=== PATIENT | male | born 1990 | race African-American/Black ===

== ENCOUNTER 2018-10-04 18:38 | Emergency (ER) | payer OTHER ==
[2018-10-04 18:44] VITALS: BP 119/77; PULSE 65; TEMP 97.6; BMI 29.2
--- NOTE | 2018-10-04 19:05 | PDOC ---
History of Present Illness - General Chief Complaint: Headache Stated Complaint: headache, and nausea Time Seen by Provider: 10/04/18 19:04 History Source: Patient Exam Limitations: No Limitations - History of Present Illness Initial Comments: 10/04/18 19:10 This is a 28-year-old male who comes in complaining of a headache. Patient has a history of migraines and said that this one was different in that he had had some visual disturbances prior to the onset of a migraine. Patient described it as a bright light and some waviness in his visual antonio patient said it was brief and then he had the headache and some associated nausea which he often does not get. Patient did not take anything for the symptoms and by came to the ED. By the time I evaluated him his symptoms had pretty much completely resolved to the point he did not want any further treatment or medications. Allergies: as per nursing notes Past Medical History: none Social history: Lives with family. No smoking. No alcohol. No illicit drugs. Surgical history: None General: No fevers or chills, no weakness, no weight loss HEENT: No change in vision. No sore throat,. No ear pain CardioVascular: no chest discomfort. No shortness of breath Respiratory:No cough, or wheezing. Gastrointestinal: + nausea, no vomiting, diarrhea or constipation, No rectal bleeding Genitourinary: No dysuria, hematuria, or frequency Musculoskeletal: No joint or muscle pain or swelling Neurologic: + migraine-type headache with some visual disturbances prior to onset of headache, vertigo, dizziness or loss of consciousness Psychiatric: nor depression Skin: No rashes or easy bruising Endocrine: no increased thirst or abnormal weight change Allergic: no skin or latex allergy All other systems reviewed and normal GENERAL: The patient is awake, alert, and fully oriented, in no acute distress. HEAD: Normal with no signs of trauma. EYES: Pupils equal, round and reactive to light, extraocular movements intact, sclera anicteric, conjunctiva clear. EXTREMITIES:atraumatic, Normal range of motion, no edema. NEUROLOGICAL: Normal speech, normal gait. PSYCH: Normal mood, normal affect. SKIN: Warm, Dry, normal turgor, no rashes or lesions noted. Assessment and plan: This is a 28-year-old male who comes in complaining of a atypical type migraine. Patient did not take anything for the symptoms and by came to the ED. By the time I evaluated him his symptoms had pretty much completely resolved to the point he did not want any further treatment or medications. Discussed with patient the etiology and treatment of migraines and referred him to follow-up with his primary care doctor if he had any further concerns Past History - Past Medical History Allergies/Adverse Reactions: Allergies Allergy/AdvReac Type Severity Reaction Status Date / Time No Known Allergies Allergy Verified 10/04/18 18:40 Home Medications: Ambulatory Orders Metoclopramide HCl [Reglan] 5 mg PO BID PRN #10 tablet 10/04/18 COPD: No Other medical history: pt denies - Suicide/Smoking/Psychosocial Hx Smoking History: Never smoked Hx Alcohol Use: No Drug/Substance Use Hx: No *Physical Exam - Vital Signs Last Vital Signs Temp Pulse Resp BP Pulse Ox 97.6 F 65 18 119/77 100 10/04/18 18:39 10/04/18 18:39 10/04/18 18:39 10/04/18 18:39 10/04/18 18:39 *DC/Admit/Observation/Transfer Diagnosis at time of Disposition: Ocular migraine - Discharge Dispostion Disposition: HOME Condition at time of disposition: Stable Decision to Admit order: No - Referrals - Patient Instructions Additional Instructions: I sent a prescription to your pharmacy for Reglan. Get it filled and take one tablet at the onset of the symptoms for your migraine as it will help with the nausea as well as the symptoms. Return to the emergency department immediately with ANY new, persistent or worsening symptoms. Continue any medications as previously prescribed by your physician. You should follow up with your primary doctor as soon as possible regarding today's emergency department visit. . Please make sure your doctor reviews the results of your emergency evaluation. Thank you for coming to the Emergency Department today for your care. It was a pleasure to see you today. Please note that your evaluation is INCOMPLETE until you follow-up with your doctor. - Post Discharge Activity
== END 2018-10-04 19:28 | disposition home or self-care (01) ==
LOC: FER 18:38
DX: G43.809 Other migraine, not intractable, without status migrainosus (principal)
CPT/HCPCS: 99281-25